=== PATIENT | female | born 1930 | race Caucasian/White ===

== ENCOUNTER → 2019-10-22 | Outpatient (CLI) | payer MEDICARE ==
--- NOTE | 2019-10-22 14:49 | KCIC ---
LUMBAR SPINE WO CONTRAST History: Back pain. Radiates to right hip. Technique: Multiplanar, multi sequential MR imaging was performed of the lumbar spine. Comparison: None Findings: L1 severe compression fracture with bone marrow edema in the vertebral body and bilateral pedicles. Hypointense signal within the vertebral body centrally, may relate to gas due to vacuum disc phenomenon. There is retropulsion at this level contributing to moderate canal narrowing and cord flattening. Mild edema within the adjacent soft tissues. Bone marrow edema within T12 anterior vertebral body. Left T12 vertebral body lesion, may represent atypical hemangioma. Conus terminates at the normal location. No evidence of nerve root clumping. Partially imaged bilateral renal cysts. Posterior paraspinal muscle atrophy. Sacral Tarlov cysts. Poorly characterized hepatic cyst. L1-L2: No canal or neuroforaminal narrowing. L2-L3: Small right central disc protrusion. No canal or neuroforaminal narrowing. Facet arthropathy. L3-L4: Small posterior disc bulge. Mild facet arthropathy. No canal narrowing. No neuroforaminal narrowing. L4-L5: Small posterior disc bulge. Moderate facet arthropathy. Mild posterior canal narrowing. No neuroforaminal narrowing. L5-S1: Broad-based posterior disc bulge. Advanced facet arthropathy. No canal narrowing. No neuroforaminal narrowing. Impression: 1. Acute to subacute severe L1 compression fracture with retropulsion contributing to moderate canal narrowing and cord flattening. 2. T12 anterior vertebral body bone marrow edema, may represent contusion. 3. Mild upper lumbar paravertebral edema. 4. Advanced lower lumbar facet arthropathy. 5. T12 left posterior vertebral body lesion, favor hemangioma in the absence of concern for malignancy. Electronically signed by: Mani Camarena DO (10/22/2019 2:46 PM) [id number]
== END | disposition home or self-care (01) ==
LOC: KCIC MRI 09:57
PROVIDERS: ATTEND Anesthesiology Pain Medicine
DX: M47.816 Spondylosis without myelopathy or radiculopathy, lumbar region (principal); M48.56XA Collapsed vertebra, not elsewhere classified, lumbar region, initial encounter for fracture; M48.061 Spinal stenosis, lumbar region without neurogenic claudication; N28.1 Cyst of kidney, acquired; G12.8 Other spinal muscular atrophies and related syndromes; K76.89 Other specified diseases of liver; M51.26 Other intervertebral disc displacement, lumbar region; M12.88 Other specific arthropathies, not elsewhere classified, other specified site; M51.27 Other intervertebral disc displacement, lumbosacral region
CPT/HCPCS: 72148

== ENCOUNTER → 2020-01-03 | Outpatient (CLI) | payer MEDICARE ==
--- NOTE | 2020-01-03 17:15 | KCIC ---
LUMBAR SPINE WO CONTRAST History: Low back pain. Compression fracture. Technique: Multiplanar, multi sequential MR imaging was performed of the lumbar spine. Comparison: October 22, 2019 Findings: New L2 compression fracture with cleft fluid the fracture line. Mild less than 25 percent height loss. Minimal retropulsion. There is adjacent paravertebral edema. Severe L1 compression fracture, unchanged height loss. Small cleft of fluid within the fracture. Retropulsion contributing to increased severe canal narrowing and cord flattening. Slightly increased pulmonary edema within T12 anterior vertebral body. No significant height loss of T12 vertebral body. Left T12 vertebral body lesion, may represent atypical hemangioma, unchanged. Conus terminates at the normal location. No evidence of nerve root clumping. Small right posterior hepatic cyst. Bilateral renal cysts, left greater than right.. Posterior paraspinal muscle atrophy. Sacral Tarlov cysts. Poorly characterized hepatic cyst. L1-L2: No canal narrowing at the disc level. Mild left neuroforaminal narrowing. L2-L3: Small right central disc bulge. No canal or neuroforaminal narrowing. Facet arthropathy. L3-L4: Small posterior disc bulge. Mild facet arthropathy. No canal narrowing. No neuroforaminal narrowing. L4-L5: Small posterior disc bulge. Moderate facet arthropathy. Mild posterior canal narrowing. No neuroforaminal narrowing. L5-S1: Broad-based posterior disc bulge. Advanced facet arthropathy. No canal narrowing. No neuroforaminal narrowing. Impression: 1. New acute L2 compression fracture with focal cleft of fluid. 2. Severe L1 chronic compression fracture with retropulsion contributing to severe canal narrowing and cord flattening, increased compared to prior. 3. Slightly increased T12 anterior vertebral body edema. 4. Multilevel lumbar spondylosis, unchanged. FOR INTERNAL CODING PURPOSES Critical result: Dr. Deleon office was closed at time of dictation. Message was left at 01/03/2020 4:58 PM. RESULT CODE: (C) Electronically signed by: Mani Camarena DO (01/03/2020 5:13 PM) [id number]
== END | disposition home or self-care (01) ==
LOC: KCIC MRI 15:41
PROVIDERS: ATTEND Anesthesiology Pain Medicine
DX: M47.816 Spondylosis without myelopathy or radiculopathy, lumbar region (principal); M48.56XA Collapsed vertebra, not elsewhere classified, lumbar region, initial encounter for fracture; M48.061 Spinal stenosis, lumbar region without neurogenic claudication; K76.89 Other specified diseases of liver; N28.1 Cyst of kidney, acquired; G12.8 Other spinal muscular atrophies and related syndromes; M85.68 Other cyst of bone, other site; M12.88 Other specific arthropathies, not elsewhere classified, other specified site; M51.26 Other intervertebral disc displacement, lumbar region; M51.27 Other intervertebral disc displacement, lumbosacral region
CPT/HCPCS: 72148